=== PATIENT | male | born 1995 | race Caucasian/White ===

== ENCOUNTER → 2018-03-28 11:49 | Outpatient (CLI) | payer OTHER, SELFPAY ==
[2018-03-28 13:36] LABS: Urine N gonorrhoeae NOT DETECTED
[2018-03-28 13:37] LABS: Urine Chlamydia NOT DETECTED
== END ==
PROVIDERS: Visit Provider Physician Assistant
DX: R30.9 Painful micturition, unspecified (principal)
CPT/HCPCS: 87491; 87591

== ENCOUNTER 2020-12-30 12:22 | Emergency (ER) | payer OTHER, SELFPAY ==
[2020-12-30 12:38] VITALS: BP 156/70; PULSE 50; RESP 20; TEMP 36.1; O2SAT 97; BMI 32.1
--- NOTE | 2020-12-30 12:38 | DI.RAD.S_ITS ---
PROCEDURE: XR CHEST 1V INDICATIONS: chest pain TECHNIQUE: One view of the chest was acquired. COMPARISON: None. FINDINGS: Surgical changes and devices: None. Lungs and pleura: Lungs are clear. No pleural effusions or pneumothorax. Mediastinum: Mediastinal contours appear normal. Heart size is normal. Bones and chest wall: No suspicious bony lesions. Overlying soft tissues appear unremarkable. IMPRESSION: No acute cardiopulmonary pathology. Dictated by: Raphael Choe M.D. on 12/30/2020 at 13:42 Approved by: Raphael Choe M.D. on 12/30/2020 at 13:43
[2020-12-30 13:13] LABS: Add Manual Diff / Slide Review NO; Basophils Absolute Auto 100 /uL (0-100); Eosinophils Absolute Auto 300 /uL (0-450); Eosinophils Percent Auto 4.4 % (2-4); Hematocrit 46.5 % (41-53); Hemoglobin 16.3 g/dL (13.5-17.5); Lymphocytes Absolute Auto 1900 /uL (1100-4500); Lymphocytes Percent Auto 30.9 % (25-40); Mean Corpuscular HGB Conc 35.1 % (30-36); Mean Corpuscular Hemoglobin 30.1 PG (26-34); Mean Corpuscular Volume 85.6 fL (80-100); Monocytes Absolute Auto 500 /uL (0-900); Monocytes Percent Auto 8.8 % (3-14); Neutrophils Absolute Auto 3400 /uL (1500-7000); Neutrophils Percent Auto 54.9 % (50-75); Platelet Count 245 X10^3/uL (150-400); Red Blood Cell Count 5.42 X10^6/uL (4.5-5.9); Red Cell Distribution Width 12.8 % (11.6-14.8); White Blood Cell Count 6.2 X10^3/uL (4.5-11.0)
[2020-12-30 13:23] LABS: Alanine Aminotransferase 61 IU/L (<50); Albumin Globulin Ratio 1.7 (1.0-2.8); Alkaline Phosphatase 76 U/L (38-126); Aspartate Aminotransferase 39 IU/L (17-59); BUN Creatinine Ratio 8.8 (6-22); Bilirubin Total 0.7 mg/dL (0.2-1.3); Blood Urea Nitrogen 10 mg/dL (9-20); Carbon Dioxide 28 mmol/L (22-32); Chloride 102 mmol/L (98-107); Creatine Kinase 59 U/L (55-170); Estimated Glomerular Filt Rate > 60.0 mL/min (>60); Glucose 91 mg/dL (70-100); HEMOLYSIS 17 (0-50); Lipase 44 U/L (23-300); Potassium 4.3 mmol/L (3.4-5.1); Sodium 142 mmol/L (137-145)
[2020-12-30 13:34] LABS: Troponin I < 0.012 ng/mL (0.01-0.034)
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
[2020-12-30 14:12] LABS: C-Reactive Protein Quant < 0.5 mg/dL (<1.0)
[2020-12-30 14:18] LABS: D Dimer 264 ng/mL (<230)
[2020-12-30 14:28] LABS: Erythrocyte Sedimentation Rate 2 MM/HR (0-15)
[2020-12-30 14:31] VITALS: BP 135/71; PULSE 82; O2SAT 96
--- NOTE | 2020-12-30 14:48 | DI.CT.S_ITS ---
PROCEDURE: CT ANGIO CHEST PE PROTOCOL INDICATIONS: CP, SOB, sudden, pleuritic, positive DDimer TECHNIQUE: After the administration of intravenous contrast, 2 mm thick sections acquired from the pulmonary apices to the posterior costophrenic angles. 3-dimensional maximum intensity projection (MIP) coronal and sagittal reformats were then acquired through the thorax. For radiation dose reduction, the following was used: automated exposure control, adjustment of mA and/or kV according to patient size. COMPARISON: None. FINDINGS: Image quality: Excellent. Pulmonary arteries: Pulmonary arteries are normal in size, and demonstrate no intraluminal filling defects to suggest central pulmonary embolism. Lungs and pleura: Lungs are clear. No pleural effusions or pneumothorax. Central and peripheral airways are patent. Mediastinum: Heart size is normal, without pericardial effusion. No mediastinal or hilar adenopathy. Thoracic aorta is normal in caliber and enhancement. Esophagus is normal in caliber, without hiatal hernia. Bones and chest wall: No suspicious bony lesions. Ribs and thoracic spine appear intact throughout. Thyroid gland is within normal limits. No axillary or supraclavicular adenopathy. Abdomen: Visualized upper abdominal solid organs appear normal in the early arterial phase of enhancement. IMPRESSION: 1. No pulmonary embolism. No aortic aneurysm or dissection. 2. Bilateral lungs are clear. Dictated by: Raphael Choe M.D. on 12/30/2020 at 14:59 Approved by: Raphael Choe M.D. on 12/30/2020 at 15:00
== END 2020-12-30 15:23 | disposition home or self-care (01) ==
PROVIDERS: Emergency Medicine; Emergency Provider Emergency Medicine
DX: R07.89 Other chest pain (principal); R06.02 Shortness of breath; R00.1 Bradycardia, unspecified
CPT/HCPCS: 36415; 71045; 71275; 80053; 82550; 83690; 84484; 85025; 85379; 85651; 86140; 93005; 99283; 99285; Q9967

== ENCOUNTER 2021-03-03 13:27 | Emergency (ER) | payer OTHER, SELFPAY ==
[2021-03-03 13:33] VITALS: BP 140/87; PULSE 65; RESP 14; TEMP 36.6; O2SAT 99; BMI 32.1
[2021-03-03 15:16] VITALS: BP 141/84; PULSE 53; RESP 22; O2SAT 98
[2021-03-03 15:17] LABS: Urine N gonorrhoeae NOT DETECTED
[2021-03-03 15:30] LABS: Urine Chlamydia NOT DETECTED
[2021-03-03 17:35] LABS: Appearance Urine UA CLEAR; Bilirubin Urine UA NEGATIVE (NEGATIVE); Color Urine UA YELLOW; Glucose Urine UA NEGATIVE (Negative); Ketones Urine UA TRACE (NEGATIVE); Leukocyte Esterase Urine UA NEGATIVE (NEGATIVE); Nitrite Urine UA NEGATIVE (Negative); Occult Blood Urine UA NEGATIVE (Negative); Protein Urine UA NEGATIVE (Negative); Specific Gravity Urine UA 1.025 (1.000-1.035); Urobilinogen Urine UA 0.2 E.U./dL (0.2)
[2021-03-03 17:47] LABS: Bacteria Urine None Seen; Culture Indicated Urine Cult Not Indicated; Mucus Urine 1+ (Negative); RBC Urine 0-1/HPF (0-5/HPF); Squamous Epithelial Cell Urine 0-1 /HPF (0-5/HPF); WBC Urine 0-1/HPF (0-5/HPF)
--- NOTE | 2021-03-03 18:12 | ED_ITS ---
HPI - General Adult General Chief complaint: Urogenital-Male Stated complaint: Wellness check Time Seen by Provider: 03/03/21 17:57 Source: patient Mode of arrival: Ambulatory History of Present Illness HPI narrative: Patient is a 25-year-old male who is here for an STD check. He states he has been having some discharge from the urethra. Has had unprotected sex and would like to be tested. He reports no other symptoms. Has had an STI in the past but was treated for it. Related Data Allergies Allergy/AdvReac Type Severity Reaction Status Date / Time No Known Drug Allergies Allergy Verified 12/30/20 12:41 Review of Systems Constitutional Constitutional: Denies fever(s) Gastrointestinal Gastrointestinal: Denies abdominal pain and Denies change in bowel habits Genitourinary Genitourinary: Denies dysuria, Reports penile discharge and Denies testicular pain Musculoskeletal Musculoskeletal: Reports system reviewed and no additional complaints, except as documented Integumentary/Breasts Skin/Breast: Reports system reviewed and no additional complaints, except as documented Hematologic/Lymphatic On Anticoagulants: No Patient History Medical History Pharyngitis Social History Smoking Status: Never smoker Smoking Status: Never smoker alcohol intake frequency: holidays/special occasions only Substance Use Type: does not use Exam Initial Vital Signs Initial Vital Signs: Vital Signs Temperature 97.8 F 03/03/21 13:33 Pulse Rate 65 03/03/21 13:33 Respiratory Rate 14 03/03/21 13:33 Blood Pressure 140/87 03/03/21 13:33 Pulse Oximetry 99 03/03/21 13:33 Resp Effort & Inspection: normal respiratory effort Cardio Rate: regular rate GI Inspection: non-distended Neuro General: patient alert, patient awake and moves all extremities Extrem General: normal to inspection and capillary refill normal Psych Appearance: grossly normal and well kempt Course Orders Ordered: ED Orders 03/03/21 13:39 Chlamydia Gonorrhea PCR -URINE Stat Urinalysis and Microscopic Stat Vital Signs Vital signs: Vital Signs - 8 hr 03/03/21 15:16 Pulse Rate 53 L Respiratory Rate 22 Blood Pressure 141/84 H Pulse Oximetry 98 Medical Decision Making Lab Data Labs: Lab Results 03/03/21 03/03/21 Range/Units 13:39 13:39 Urine Color Yellow Urine Appearance Clear Urine pH 6.0 (4.5-8.0) Ur Specific [place] 1.025 (1.000-1.035) Urine Protein Negative (Negative) Urine Glucose (UA) Negative (Negative) g/dL Urine Ketones Trace H (NEGATIVE) Urine Occult Blood Negative (Negative) Urine Nitrate Negative (Negative) Urine Bilirubin Negative (NEGATIVE) Urine Urobilinogen 0.2 (0.2) E.U./dL Ur Leukocyte Esterase Negative (NEGATIVE) Urine RBC 0-1/hpf (0-5/HPF) Urine WBC 0-1/hpf (0-5/HPF) Ur Squamous Epith Cells 0-1 /hpf (0-5/HPF) Urine Bacteria None seen (None) Urine Mucus 1+ H (Negative) Ur Culture Indicated? Cult not indicated Ur Chlamydia DNA (PCR) Not detected N gonorrhoeae DNA (PCR) Not detected MDM Narrative Medical decision making narrative: Urine and gonorrhea and chlamydia are all negative. I did discuss this with the patient. We did discuss the limitations of what we tested for here in the emergency department. We did discuss the continued use of safer sex practices. He is given return precautions. He expressed understanding agreement. Discharge Plan Departure Patient Disposition: Home Clinical Impression: Feared condition not demonstrated Activity Restrictions/Additional Instructions: The testing today did not show any indication of gonorrhea and/or chlamydia. Continue to practice safer sex practices. Return to the emergency department for any new or worsening symptoms.
== END 2021-03-03 18:20 | disposition home or self-care (01) ==
PROVIDERS: Emergency Medicine; Emergency Provider Emergency Medicine
DX: Z03.89 Encounter for observation for other suspected diseases and conditions ruled out (principal)
CPT/HCPCS: 81001; 87491; 87591; 99281; 99282